=== PATIENT | female | born 1980 | race Two or more races ===

== ENCOUNTER → 2016-07-11 | Outpatient (CLI) | payer MEDICAID ==
[~2016-07-11] MED LIST: MOTRIN800 MG PO; NORCO 5-325 TA1 EACH PO; PRENATAL 1+1)(P1 TAB PO; SURFAK240 MG PO
== END | disposition disaster alternative care site (69) ==
LOC: GLAB 08:00
DX: Z36 Encounter for antenatal screening of mother (principal)

== ENCOUNTER 2016-09-25 15:59 | Inpatient (IN) | payer MEDICAID ==
[~2016-09-25] VITALS: Ht 154.9 cm; Wt 75.0 kg
--- NOTE | ~2016-09-25 | OR ---
PATIENT'S NAME: SARY SULTANA [facility] AGE: 36 Y [address] 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 Intrauterine at 38 weeks and 6 days. 2. Active labor. 3. Gestational diabetes, class A1. POSTOPERATIVE DIAGNOSES: 1. Intrauterine at 38 weeks and 6 days. 2. Active labor. 3. Gestational diabetes, class A1. PROCEDURE PERFORMED: Spontaneous vaginal delivery over intact perineum. ANESTHESIA: None. FINDINGS: Viable female infant with Apgars of 8 and 9 and weight of 3110 g. Placenta intact with three-vessel cord. No cervical, vaginal, or perineal lacerations. ESTIMATED BLOOD LOSS: 300 mL. COMPLICATIONS: None. INDICATIONS: The patient is a 36-year-old, G4, P3-0-0-3, who presented to Labor and Delivery in active labor. She was found to be 4 cm. She progressed to 7 cm and had artificial rupture of membranes with clear fluid. She then progressed to complete and started maternal expulsive efforts. DESCRIPTION OF PROCEDURE: The patient was prepped and draped in the usual fashion. She was in dorsal lithotomy position Over 3 contractions, the patient pushed and delivered in the [place] position. The anterior shoulder then delivered followed by the remainder of the fetus. The was placed on the mother's abdomen. The cord was clamped and cut. Cord blood was obtained. The placenta then delivered spontaneously intact with a three-vessel cord. No cervical, vaginal, or perineal lacerations were noted. Instrument, sponge, and needle counts were correct at the conclusion of the case. PATIENT'S NAME: SARY SULTANA R [facility] AGE: 36 Y [address] ROOM: [place] [id number] LOCATION: [facility] ADMIT DATE: 09/25/2016 OR/Procedure Report DISCHARGE DATE: FAMILY PHYSICIAN: PHYSICIAN, NO ATTENDING PHYSICIAN: Maria Capone DISPOSITION: Mom stable. Baby in room with mom. MD TATO GUEVARA/destini /[id number] d: 09/25/[id number] t: 09/26/16 0951, OPERATIVE SUMMARY
[2016-09-25 16:45] LABS: BASOPHIL % 0.1 %; EOSINOPHIL # 0.1 K/uL (0.0-0.5); EOSINOPHIL % 0.7 %; HEMATOCRIT 41.2 % (33.0-46.0); HEMOGLOBIN 14.5 g/dL (11.0-15.0); IMMATURE GRANULOCYTE % 0.2 %; LYMPHOCYTE # 1.2 K/uL (0.8-4.0); LYMPHOCYTE % 14.5 %; MCH 32.3 pg (27.0-34.0); MCHC 35.2 gm/dL (32.0-36.5); MCV 91.8 fl (83.0-98.0); MONOCYTE # 0.7 K/uL (0.0-1.0); MONOCYTE % 8.2 %; MPV 12.5 fl (9.4-12.4); NEUTROPHIL # (ANC) 6.5 K/uL (1.8-7.8); NEUTROPHIL % 76.3 %; NRBC % 0 /100WBC (0-0.00); PLATELET COUNT 159 K/uL (150-450); RBC 4.49 M/uL (3.50-5.50); WBC 8.5 K/uL (4.0-11.0)
[2016-09-25] MEDS ORDERED: PRENATAL 1+1)(P1 TAB PO (16:59)
[2016-09-26 04:04] LABS: BASOPHIL % 0.2 %; EOSINOPHIL % 0.1 %; HEMATOCRIT 36.2 % (33.0-46.0); HEMOGLOBIN 12.4 g/dL (11.0-15.0); IMMATURE GRANULOCYTE % 0.3 %; LYMPHOCYTE # 1.7 K/uL (0.8-4.0); LYMPHOCYTE % 13.8 %; MCH 31.2 pg (27.0-34.0); MCHC 34.3 gm/dL (32.0-36.5); MCV 91.2 fl (83.0-98.0); MONOCYTE # 1.1 K/uL (0.0-1.0); MONOCYTE % 8.6 %; MPV 12.4 fl (9.4-12.4); NEUTROPHIL # (ANC) 9.3 K/uL (1.8-7.8); NRBC % 0 /100WBC (0-0.00); PLATELET COUNT 144 K/uL (150-450); RBC 3.97 M/uL (3.50-5.50); RDW-CV 12.9 % (11.9-14.6); WBC 12.1 K/uL (4.0-11.0)
--- NOTE | 2016-09-26 05:19 | NUR ---
Pt VSS, voiding well, small lochia, and fundus firm midline. One percocet and motrin given at 2100. Baby VSS, last fed at 0145 breastfed 25 min. then bottlefed for 10 min. 15 ml. One more accucheck needed before next feeding and then should be done. All accuchecks have been above 45 (70,92,60). No wet or stools in lifetime yet. Mother bonds well with infant.
[2016-09-26] MEDS ORDERED: SURFAK240 MG PO (09:45)
--- NOTE | 2016-09-26 17:54 | NUR ---
09/26/16 1750 Vss. Video's watched. Breast/pc's Sim. Belen @___. Perc. @ 1241. Belen @ 4241. Video's watched.
[2016-09-27] MEDS ORDERED: SURFAK240 MG PO (09:22)
[2016-09-27] MEDS ORDERED: MOTRIN800 MG PO (09:23)
[2016-09-27] MEDS ORDERED: NORCO 5-325 TA1 EACH PO (09:23)
== END 2016-09-27 10:35 | disposition disaster alternative care site (69) | DRG 775 ==
LOC: GOBS 15:59
PROVIDERS: Obstetrics & Gynecology; ADMIT Obstetrics & Gynecology
PROC: 10E0XZZ Delivery of Products of Conception, External Approach (ICD-10-PCS; principal; 2016-09-25)
PROC: 4A1HX4Z Monitoring of Products of Conception, Cardiac Electrical Activity, External Approach (ICD-10-PCS; principal; 2016-09-25)
PROC: 10907ZC Drainage of Amniotic Fluid, Therapeutic from Products of Conception, Via Natural or Artificial Opening (ICD-10-PCS; principal; 2016-09-25)
DX: O24.420 Gestational diabetes mellitus in childbirth, diet controlled (principal); Z37.0 Single live birth; Z3A.38 38 weeks gestation of pregnancy
CPT/HCPCS: J2001; J2590; J7120